=== PATIENT | female | born 1945 | race Caucasian/White ===

== ENCOUNTER 2022-06-15 11:39 | Day surgery (SDC) | payer MEDICARE, OTHER, SELFPAY ==
[2022-06-13] MEDS: Lactated Ringers 1,000 ML 15 ML IV (10:45)
[2022-06-13 10:50] VITALS: BP 173/76; PULSE 74; RESP 16; TEMP 37; O2SAT 100; BMI 26.2
[2022-06-15] MEDS: Lactated Ringers 1,000 ML 15 ML IV (12:26)
[2022-06-15 12:28] VITALS: BP 151/74; PULSE 74; RESP 18; TEMP 37.1; O2SAT 100; BMI 26.3
[2022-06-15] MEDS: Cefazolin 2 GM in 0.9% Normal Saline 100 ML IV (14:29)
--- NOTE | 2022-06-15 15:10 | DCINST_ITS ---
Discharge Instructions Diet Discharge Diet: No restrictions Activity Discharge Activity: Return to Normal Activity Dressing / Incision Call your doctor if you observe: Fever of 101 or Higher, Inability to urinate and Inability to have a bowel movement Follow Up Care Please Follow Up With: Katrina Love MD When: Call office for appointment to be seen in 2 weeks Test Results: Test results from this visit will be discussed in further detail at your follow- up appointment, if applicable. Discharge Plan Admission Attending Provider: Katrina Love Primary Care Provider: Jud Medina Discharge Orders/Prescriptions Prescriptions: New oxycodone-acetaminophen [Percocet] 5-325 mg tablet 1 tab PO Q8H PRN (Reason: pain) 3 Days Qty: 10 0RF cephalexin [cephalexin] 500 mg capsule 500 mg PO Q12 3 Days Qty: 6 0RF phenazopyridine [Pyridium] 200 mg tablet 200 mg PO TID PRN PRN (Reason: Bladder Spasms) 7 Days Qty: 30 0RF Continued oxycodone-acetaminophen 5-325 mg tablet 1 tab PO PRN PRN (Reason: Pain) Label Comments: TAKE 1 TABLET BY MOUTH EVERY 6 HOURS NEEDED FOR SEVERE PAIN lisinopril 10 mg tablet 10 mg PO DAILY pravastatin 20 mg tablet 20 mg PO DAILY Label Comments: TAKE 1 TABLET BY MOUTH AT BEDTIME OR WITH EVENING MEAL estradiol 0.01 % (0.1 mg/gram) cream 1 applic VAGINAL MOWEFR Label Comments: APPLY 1 GRAM VAGINALLY 3CTIMES A WEEK BEFORE BED Probiotic 10 billion cell Capsule 10,000 mmu cells PO DAILY Referrals / Follow Up: Jud Medina PA [Primary Care Provider] - Disposition Disposition (needs filled in before D/C Order can be placed): Home, Self Care
--- NOTE | 2022-06-15 15:12 | PCM.OPRPT ---
Report of Operation Date of Procedure: 06/15/22 Pre-Operative Diagnosis: Right distal ureteral calculus with hydronephrosis Post-Operative Diagnosis: Same, passed Surgery/Procedure Performed:: Cystoscopy, right retrograde pyelogram, attempted right ureteroscopy, right ureteral stent insertion, bladder calculus removal Surgeon: Katrina Love Type of Anesthesia: General Description of Procedure: The patient is a 77-year-old female who was found to have a punctate right distal ureteral calculus with hydronephrosis along with right-sided flank pain. The decision was made to take her to the the operating room for further evaluation and management. Informed consent was obtained. The patient was taken to the operating room and placed on the operating room table. Anesthesia monitored the head, neck, airway, IV access and vital signs throughout the case. Once anesthesia was appropriately administered, the patient was placed into dorsolithotomy position and was prepped and draped in usual sterile fashion. The cystoscope was inserted through the urethra under direct visualization into the urinary bladder. Once inside the urinary bladder, the mucosa was visualized revealing no evidence of mass or erythema. There were multiple pinpoint sized calcifications seen in the floor of the bladder. these were consistent with the stone seen at the distal right ureter. There is a large cystocele and a very small vaginal vault making cystoscopic evaluation and finding the right ureteral orifice somewhat difficult. Once the orifice was identified, it was gently cannulated with an 8 [place] cone-tip catheter and contrast was injected in retrograde fashion revealing a narrow ureter with no evidence of obstruction. An 0.035 Glidewire was then passed into the renal pelvis and an attempt was made at ureteroscopy however the scope would not fit. The decision was made to place a ureteral stent for dilation of the ureter. The stone seen in the bladder floor were irrigated and were pinpoint in size and so small I was unable to send for evaluation. The patient's bladder was emptied and the cystoscope was removed. She was taken to the recovery room in good condition. There were no complications during this procedure. Grafts/Implants Used: 6 x 24 cm JJ stent Complications None Admit VTE Documentation VTE Present on Admission: Yes VTE Mechan Device Prophylaxis: SCD's VTE Pharm Prophylaxis ordered?: No Reason prophylaxis not ordered:: Treatment Not Indicated
[2022-06-15 15:15] VITALS: BP 151/74; BP 154/82; PULSE 68; RESP 18; TEMP 36.3; O2SAT 97
[2022-06-15 15:30] VITALS: BP 151/74; BP 170/85; PULSE 61; RESP 18; O2SAT 99
[2022-06-15 15:39] VITALS: BP 151/74; BP 167/79; PULSE 56; RESP 18; TEMP 36.1; O2SAT 100
[2022-06-15] MEDS: oxyCODONE 5 MG Tablet PO (16:17)
[2022-06-15] MEDS: Acetaminophen 325 MG Tablet PO (16:17)
[2022-06-15 16:30] VITALS: BP 151/74; BP 169/79; PULSE 56; RESP 18; TEMP 36.1; O2SAT 100
== END 2022-06-15 16:30 | disposition home or self-care (01) ==
LOC: SDC 11:39 → AC 11:53
PROVIDERS: PCP Physician Assistant; Referring Provider Urology; Visit Provider Urology
PROC: 0TJ98ZZ Inspection of Ureter, Via Natural or Artificial Opening Endoscopic (ICD-10-PCS; CPT 52352; principal; 2022-06-15 13:55)
DX: N13.2 Hydronephrosis with renal and ureteral calculous obstruction (principal); I10 Essential (primary) hypertension; N81.10 Cystocele, unspecified; Z79.899 Other long term (current) drug therapy
CPT/HCPCS: 52332; 00910; 76000; J7120; C2617; J2405

== ENCOUNTER → 2022-07-17 | Outpatient (CLI) | payer MEDICARE, OTHER, SELFPAY ==
--- NOTE | 2022-07-17 14:19 | US_ITS ---
STUDY: RENAL ULTRASOUND - COMPLETE REASON FOR EXAM: Female, 77 years old. CALIECTASIS TECHNIQUE: Ultrasound evaluation of the kidneys was performed with real-time and static amin-scale imaging. COMPARISON: None. FINDINGS: RIGHT KIDNEY: Normal location of the right kidney, which is normal in size. The right kidney measures 10.8 x 4.1 x 4 cm. There is a normal cortex of the right kidney. The renal cortex measures 1 cm. There is no right renal mass or cyst. There are no right renal calculi. No evidence for significant hydronephrosis. DISTAL RIGHT URETER: There is non-visualization of the distal right ureter. There is no demonstrated right ureterovesical junction calculus. There is a visualized right ureteral jet. LEFT KIDNEY: Normal location of the left kidney, which is normal in size. The left kidney measures 10.6 x 4.8 x 4.3 cm. Mild caliectasis without significant hydronephrosis. The renal cortex measures 1 cm. There is no left renal mass or cyst. There are no left renal calculi. There is no left hydronephrosis. DISTAL LEFT URETER: There is non-visualization of the distal left ureter. There is no demonstrated left ureterovesical junction calculus. There is a visualized left ureteral jet. BLADDER: The distended urinary bladder has a volume of 39.8 ml. There is no demonstrated mass within the urinary bladder. There are no demonstrated bladder calculi. US/Kidney and Bladder IMPRESSION: Mild left renal caliectasis without significant hydronephrosis If patient has symptoms suggestive of obstructive uropathy CT recommended Electronically Signed: Randolph Hodge MD at 17:59 EDT ,
== END | disposition home or self-care (01) ==
LOC: US 14:17
PROVIDERS: PCP Physician Assistant; Referring Provider Urology; Visit Provider Urology
DX: N20.1 Calculus of ureter (principal); N28.89 Other specified disorders of kidney and ureter
CPT/HCPCS: 76770